=== PATIENT | female | born 1980 | race Caucasian/White ===

== ENCOUNTER 2018-12-31 21:03 | Emergency (ER) | payer OTHER ==
[~2018-12-31] VITALS: Ht 160 cm; Wt 48.1 kg
--- NOTE | 2018-12-31 21:35 | NUR ---
BIBSELF FROM HOME. AAOX4. AMBULATORY. NO RESP DISTRESS NOTED, BREATHING JIE AND UNLABORED. TO ER BED 16. C/O HEAD PAIN AT THE BACK OF HER HEAD S/P GLF X 6HOURS AGO. RATES PAIN 5/10. PT REPORT DIZZYNESS AND NAUSEATED SINCE THE INCIDENT. PTY DENIES HEMANTH. AT BEDSIDE. AWAITING FOR ORDERS
--- NOTE | 2018-12-31 21:50 | NUR ---
PT TO RADIOLOGY
[2018-12-31 22:33] VITALS: BP 106/72
== END 2018-12-31 22:38 | disposition home or self-care (01) ==
LOC: ER 21:03
DX: S06.0X0A Concussion without loss of consciousness, initial encounter (principal); Z98.890 Other specified postprocedural states; W01.0XXA Fall on same level from slipping, tripping and stumbling without subsequent striking against object, initial encounter; Y93.89 Activity, other specified; Y92.520 Airport as the place of occurrence of the external cause; Y99.8 Other external cause status
CPT/HCPCS: 70450-TC